=== PATIENT | female | born 1965 | race Caucasian/White ===

== ENCOUNTER → 2016-03-29 | Outpatient (CLI) | payer OTHER ==
[2016-03-29 07:57] LABS: HEMOGLOBIN A1C 5.61 % (4.2-6.0); MEAN BLOOD GLUCOSE (CALC) 100.813 mg/dL
== END ==
LOC: LAB 07:39
PROVIDERS: ATTEND Family Medicine
DX: E11.9 Type 2 diabetes mellitus without complications (principal)
CPT/HCPCS: 36415; 83036

== ENCOUNTER → 2016-04-05 | Outpatient (CLI) | payer OTHER ==
--- NOTE | 2016-04-05 09:02 | DI ---
US ABDOMEN LIMITED,04/05/2016 8:00 AM: Clinical History: Abdominal pain. Previous Exam: December 08, 2006 Findings: Multiple grayscale and color Doppler sonographic images are obtained through the right upper quadrant , demonstrating multiple layering stones within the gallbladder. The right kidney is normal measuring 10.0 cm in length. Common bile duct measures 4 mm. There is diffuse fatty infiltration of the liver. The pancreas is not well seen, but visualized portions are unremarkable. Impression: 1. Fatty infiltration of the liver. 2. Cholelithiasis without evidence of acute cholecystitis.
== END ==
LOC: US 07:50
PROVIDERS: ATTEND Family Medicine
DX: R10.84 Generalized abdominal pain (principal); K76.0 Fatty (change of) liver, not elsewhere classified; K80.20 Calculus of gallbladder without cholecystitis without obstruction
CPT/HCPCS: 76705

== ENCOUNTER → 2016-07-01 | Outpatient (CLI) | payer OTHER ==
[2016-07-01 09:52] LABS: CHOL/HDL RATIO 2.5 RATIO (0-4.0); LDL CHOLESTEROL,CALCULATED 106.8 mg/dL
== END ==
LOC: LAB 08:36
PROVIDERS: ATTEND Family Medicine
DX: E11.9 Type 2 diabetes mellitus without complications (principal)
CPT/HCPCS: 36415; 80061; 83036

== ENCOUNTER → 2016-09-14 | Outpatient (CLI) | payer OTHER ==
--- NOTE | 2016-09-14 13:26 | DI ---
XR TOES MIN 2VW,09/14/2016 9:17 AM: Clinical History: Bone injury. Previous Exam: None at this facility. Findings: 3 views of the right first digit are obtained, and demonstrate a small avulsion fracture involving th e fibular surface of the proximal right first distal phalanx. This also involves the articular surfac e. Surrounding soft tissues are slightly prominent. Impression: Small avulsion fracture involving the articular surface of the right first distal phalanx along the f ibular surface.
== END ==
LOC: MOB RAD 09:20
PROVIDERS: ATTEND Physician Assistant Medical
DX: M79.674 Pain in right toe(s) (principal); S92.424A Nondisplaced fracture of distal phalanx of right great toe, initial encounter for closed fracture; W20.8XXA Other cause of strike by thrown, projected or falling object, initial encounter; Y93.89 Activity, other specified; Y92.098 Other place in other non-institutional residence as the place of occurrence of the external cause
CPT/HCPCS: 73660

== ENCOUNTER → 2016-09-19 | Outpatient (CLI) | payer OTHER ==
--- NOTE | 2016-09-19 14:19 | DI ---
MAMMO U/L DIAGNOSTIC, US BRST U/L OR B/L, BREAST TOMOSYNTHESIS DIG U/L,09/19/2016 11:21 AM: Clinical History: Tender right axillary mass. Previous Exam: April 13, 2016 Findings: CC and MLO views of the right breast are obtained to include breast tomosynthesis of the right breast . Computer-aided diagnostics were applied. Heterogeneously dense fibroglandular elements are noted. Multiple characteristically benign calcifications are seen. There is no suspicious mass. Physical examination revealed tenderness to deep palpation, but no palpable mass. Sonographic evaluation revealed normal fibroglandular elements. There are a few benign-appearing lymp h nodes noted as well. There is no cystic mass. Impression: No mammographic, tomosynthetic, nor sonographic evidence of malignancy. BIRADS: 2: Benign findings Recommendations: Annual screening. Note: Breast examination has been discussed and encouraged, and the patient informed to return if the re is any new palpable abnormality in the interval between screening. Overall imaging assessment: Benign findings.
== END ==
LOC: MAMMO 11:17
PROVIDERS: ATTEND Nurse Practitioner Family
DX: R22.31 Localized swelling, mass and lump, right upper limb (principal)
CPT/HCPCS: 76641; G0206; G0279

== ENCOUNTER → 2016-10-01 | Outpatient (CLI) | payer OTHER ==
--- NOTE | 2016-10-01 13:44 | DI ---
RIGHT GREAT TOE EXAM , 10/01/2016 12:04 PM: Clinical History: Followup fracture of the great toe. Previous Exam: 09/14/2016. 3 views are submitted. The previously identified avulsion fracture at the base of the distal phalanx of the great toe on the lateral margin is again visualized and there has been no change. There is an exostosis arising from the dorsomedial surface at the base of the distal phalanx. Reading: No change in the avulsion fracture fragment at the base of the distal phalanx of the great toes on th e lateral aspect.
== END ==
LOC: MOB RAD 13:05
PROVIDERS: ATTEND Physician Assistant
DX: S92.424D Nondisplaced fracture of distal phalanx of right great toe, subsequent encounter for fracture with routine healing (principal)
CPT/HCPCS: 73660